=== PATIENT | male | born 1970 | race Caucasian/White ===

== ENCOUNTER 2023-04-27 09:02 | Emergency (ER) | payer BC, SELFPAY ==
[2023-04-27] MEDS ORDERED: Silver Sulfadiazine 50 GM JAR ONE (09:10)
== END 2023-04-27 09:25 | disposition home or self-care (01) ==
LOC: BURERS 09:02
DX: T20.10XA Burn of first degree of head, face, and neck, unspecified site, initial encounter (principal); X19.XXXA Contact with other heat and hot substances, initial encounter
CPT/HCPCS: 99283